=== PATIENT | female | born 1955 | race Caucasian/White ===

== ENCOUNTER → 2018-09-02 | Outpatient (CLI) | payer OTHER ==
[~2018-09-02] MED LIST: CLARITIN10 MG PO; DYRENIUM50 MG PO; FENOFIBRATE160 MG PO; FLONASE 0.05%50 MCG NASAL; LEXAPRO20 MG PO; OXYBUTYNIN 5 MG5 M2 PO; PROAIR HFA8.5 GM; SIMVASTATIN40 MG PO; SYMBICORT160 MCG/4. INH; SYNTHROID125 MC1 PO; TOPAMAX50 MG PO
--- NOTE | 2018-09-02 16:56 | EKG ---
[place] [address] Chat& (ChatAnd)[facility] [place] [address] ELECTROCARDIOGRAM REPORT Name: CHERYL GLYNNHLEEN [id number] ������������������ Admission: 09/02/18 ������������������ Attend Phys: Omar Connolly, Discharge: ������������������ Date of : 59 Report #: [id number] ����������������������������������������������������������������� [id number] THIS REPORT FOR: //name// [facility] Test Date: 2018-09-02 Test Time: 07:20:15 Pat Name: CHRISTY GLYNN Department: Room: Gender: F Deputy Prosecuting Attorney: HERI : 1955 Requested By: Omar Connolly Order Number: [id number] MD: Edil Rizvi Measurements Intervals [place] Rate: 69 P: 10 ND: 146 QRS: -26 QRSD: 95 T: 0 QT: 426 QTc: 457 Interpretive Statements Sinus rhythm Poor R wave progression Nonspecific ST and T wave abnormality No previous ECG available for comparison Electronically Signed On 09-02-2018 16:56:11 CDT by Eidl Rizvi [email or web address] ��������������������������������������������� <ELECTRONICALLY SIGNED> ���������������������������������������� By: Edil Rizvi MD, [facility] ��������������������������������������������� 09/02/18 1656 9 9 Edil Rizvi MD, [facility] /EPI
== END | disposition home or self-care (01) ==
LOC: LITH 06:38
DX: N20.1 Calculus of ureter (principal); Z53.8 Procedure and treatment not carried out for other reasons; I10 Essential (primary) hypertension; E78.00 Pure hypercholesterolemia, unspecified; M10.9 Gout, unspecified; F32.9 Major depressive disorder, single episode, unspecified; F41.9 Anxiety disorder, unspecified; J45.909 Unspecified asthma, uncomplicated; G47.33 Obstructive sleep apnea (adult) (pediatric); Z90.49 Acquired absence of other specified parts of digestive tract; Z98.890 Other specified postprocedural states; Z79.899 Other long term (current) drug therapy
CPT/HCPCS: 50010

== ENCOUNTER → 2019-09-23 | Outpatient (CLI) | payer OTHER ==
[~2019-09-23] VITALS: Ht 157.5 cm; Wt 101.7 kg
[~2019-09-23] MED LIST changes: +ASPIR 8181 M1 PO; +HYDROCODON-ACE1 EAC7 PO; +NAPROSYN500 M1 PO; +NORTRIPTYLINE H10 M1 PO
[2019-09-23 10:12] VITALS: BP 134/90
--- NOTE | 2019-09-23 10:38 | NUR ---
Pain Clinic Assessment: 1. History of Osteoarthritis: KNEES BACK HIPS History of Rheumatoid Arthritis: 2. Height: 5 ft. 2 in. 157.5 cm. Weight: 224.2 lb. oz. 101.697 kg. Patient's BMI: 41.0 3. Vital Signs: BP: 134/90 Pulse: 87 Resp: 20 Temp: 02 Sat: 95 ECG Mon: 4. Pain Intensity: 5-7 5. Fall Risk: Dizziness: Y Needs help standing or walking: Y Fallen in the last 3 months: Y Fall risk comments: 6. Patient on Blood Thinner: None 7. History of Hypertension: Y 8. Opioid Therapy greater than 6 weeks: N Opiate Contract Signed: 9. Risk Assessment Tool Provided: 2-LOW RISK 10. Functional Assessment Tool: 11. Recreational Drug Use: Never Drug Type: Tobacco Use: Former Smoker Tobacco Type: Cigarettes Amount or Packs/day: How Many Years: 15 Alcohol Use: No Frequency: Quant:
--- NOTE | 2019-09-30 07:58 | HPC ---
[facility] [place] [address] PAIN MANAGEMENT CONSULTATION Name: CHRISTY GLYNN Room #: REG TOEFILO Denise.#: [id number] Admission: 09/23/19 Attend Phys: Tim Sampson MD Discharge: Date of : 59 Report #: [id number] THIS REPORT FOR: cc: Ann Marie Cole MD, Teresa MD Brown,Tim Kothari MD ~ CC: Tim Cole MD DATE OF SERVICE: 09/23/2019 CHIEF COMPLAINT: Low back and leg pain. HISTORY: The patient is a 64-year-old female who has been referred to the Pain Clinic for evaluation of back and leg pain. She recounts injury in 04/2019. She was kicked in the back by her friend's dog around [place]. She noticed pain and discomfort after that incident. She is having pain that radiates down into her left leg. She was provided a Medrol Dosepak. Her pain continued in spite of that treatment. She has tried muscle relaxants as well as Tylenol. Describes the pain as sharp in her lower back with radiation to the left leg. She denies any bowel or bladder dysfunction. Certain movements can exacerbate her discomfort. She has tried ice as well as nonsteroidal anti-inflammatory medications. She has not had back surgery. Pain today as a 5-7/10. Notes that pain is exacerbated by standing. Sitting on the toilet can be problematic. She describes the characteristics of the pain in her leg is intermittent, burning, shooting with numbness and tingling. She did go to the Emergency Room and was given some pain pills. She denies chiropractic treatment. She has had physical therapy on 2 occasions. Did note some improvement. She finds that tramadol has been helpful. She is felt to be prediabetic. She has had seizures. She feels the seizures coming on. She has been somewhat problematic and that her has had spine surgery. He underwent spine surgery on about 08/02/2019. She has come to the Pain Clinic for evaluation and treatment. ALLERGIES: CODEINE. CURRENT MEDICATIONS: Naprosyn 500 mg, nortriptyline 10 mg 2 tablets at bedtime, Ventolin 2 puffs p.r.n., baclofen 10 mg, oxybutynin 10 mg, Topamax 50 mg, Flonase 50 mcg, loratadine 10 mg, simvastatin 40 mg, Keppra 750 mg, Lexapro 20 mg, triamterene/hydrochlorothiazide 37.5/25, aspirin 81 mg, fenofibrate 160 mg, Symbicort 160/4.5 two puffs, levothyroxine 150 mcg. PAST MEDICAL HISTORY: 1. Right and left shoulder pain. 2. Right hydronephrosis. [address] [address] PAIN MANAGEMENT CONSULTATION Name: CHRISTY GLYNN Room #: REG [facility].#: [id number] Admission: 09/23/19 Attend Phys: Tim Sampson MD Discharge: Date of : 59 Report #: [id number] 3. Hypertension. 4. Hyperlipidemia. 5. Prediabetic. 6. Seizures/convulsions 7. Major depressive disorder. 8. Sleep apnea. 9. Hypothyroidism. 10. Asthma. 11. Allergic rhinitis. 12. Lumbar radiculopathy on the left side. 13. Osteoarthritis, right knee. 14. Arthritis, lumbosacral spine. 15. Bilateral knee pain. 16. Overactive bladder. PAST SURGICAL HISTORY: Tonsils in 1959 and cholecystectomy in 1996. SOCIAL HISTORY: She is retired, has not worked since 2004. REVIEW OF SYSTEMS: Migraine headaches, cataracts, wears glasses, hearing loss, asthma, kidney stones, generally good health, rash, itching, lightheadedness, dizziness, convulsion/seizures, numbness and tingling sensation, depression, insomnia, thyroid disease, excessive thirst, and easy bruising. PAIN CLINIC ASSESSMENT/PQRS: 1. History of osteoarthritis involving the knees, back and hips. She is not being treated for rheumatoid arthritis. 2. Height 5 feet 2 inches, weight 224 pounds, BMI is 41. 3. Vital Signs: Blood pressure 134/90, pulse 87, respiratory rate 20, and room air saturation 95%. 4. Pain intensity 5-7/10. 5. Fall risk. The patient has not fallen in the last month. 6. Blood thinner. The patient is not on a blood thinning medication. 7. Hypertension. The patient is being treated for hypertension. 8. Opioids greater than 6 weeks. The patient receives medication from the Pain Clinic from one source. 9. Risk assessment tool, low for opioid use. 10. Functional assessment tool reviewed. 11. Recreational drug use. The patient denies. 12. Tobacco: The patient is a former smoker, smoked for 15 years. 13. Alcohol. The patient denies frequent use of alcoholic beverages. PHYSICAL EXAMINATION: GENERAL: The patient is a well-developed, well-nourished white female. Appears her stated age. She is alert and oriented x 3. Her affect is appropriate. Speech is fluent. [facility] [address] [place] [address] PAIN MANAGEMENT CONSULTATION Name: CHRISTY GLYNN Room #: REG TEOFILO Henley#: [id number] Admission: 09/23/19 Attend Phys: Tim Sampson MD Discharge: Date of : 59 Report #: [id number] HEENT: Normocephalic, atraumatic. Extraocular eye muscles intact. The patient is wearing glasses. HEART: Regular rate. ABDOMEN: Nontender. MUSCULOSKELETAL: The patient has pain and discomfort in the lower portion of her back with pain radiating down into the left L5-S1 dermatomal distribution as well as some discomfort in the L4-L5 dermatomal distribution. IMPRESSION: 1. Lumbar radiculopathy involving the left leg. 2. History of lumbar radiculopathy involving the right leg. 3. Hypertension. 4. Right and left shoulder pain. 5. Right hydronephrosis. 6. Hyperlipidemia. 7. Prediabetic. 8. Seizures/convulsions 9. Major depressive disorder. 10. Sleep apnea. 11. Hypothyroidism. 12. Asthma. 13. Allergic rhinitis. 14. Lumbar radiculopathy on the left side. 15. Osteoarthritis, right knee. 16. Arthritis, lumbosacral spine. 17. Bilateral knee pain. 18. Overactive bladder. RECOMMENDATIONS: We discussed treatment options with the patient. Possibility of a lumbar epidural steroid injection has been discussed. We explained to the patient that possible complication of an epidural steroid injection include infection, worsening of pain, no improvement in pain, nerve damage, spinal headache. We will have the patient try hydrocodone 5 mg 1 p.o. b.i.d., total of 20 tablets have been provided. We explained to the patient the possible complications associated with an injection at this juncture. Steroids can decrease one's immunologic status. We explained to the patient that some were more susceptible include the patients who have chronic pain, elderly those were greater than 60 years old, chronic opioid use can cause immunosuppression as well as intervention of pain procedures can induce immunosuppression. The patient feels that her pain is quite problematic. She will consider the options. Should she return to the pain clinic in situ and she would like to undergo an epidural steroid injection, we will proceed with one. [address] [address] PAIN MANAGEMENT CONSULTATION Name: CHRISTY GLYNN Room #: REG [facility]#: [id number] Admission: 09/23/19 Attend Phys: Tim Sampson MD Discharge: Date of : 59 Report #: [id number] We would like to thank you for letting us participate in her care. We hope she continues to improve. <ELECTRONICALLY SIGNED> By: Tim Sampson MD 09/30/19 [phone] Tim Sampson MD /nt
== END ==
LOC: PAIN 07:39
DX: M54.16 Radiculopathy, lumbar region (principal); I10 Essential (primary) hypertension; M25.511 Pain in right shoulder; M25.512 Pain in left shoulder; N13.2 Hydronephrosis with renal and ureteral calculous obstruction; R73.03 Prediabetes; E78.5 Hyperlipidemia, unspecified; R56.9 Unspecified convulsions; F32.9 Major depressive disorder, single episode, unspecified; G47.30 Sleep apnea, unspecified; J45.909 Unspecified asthma, uncomplicated; M17.11 Unilateral primary osteoarthritis, right knee; M47.816 Spondylosis without myelopathy or radiculopathy, lumbar region; M25.562 Pain in left knee; M25.561 Pain in right knee; N32.81 Overactive bladder; M46.96 Unspecified inflammatory spondylopathy, lumbar region; F11.20 Opioid dependence, uncomplicated; Z87.39 Personal history of other diseases of the musculoskeletal system and connective tissue; Z88.5 Allergy status to narcotic agent; Z79.899 Other long term (current) drug therapy